=== PATIENT | male | born 1980 | race Caucasian/White ===

== ENCOUNTER 2023-09-12 08:23 | Emergency (ER) | payer MEDICAID ==
[~2023-09-12] VITALS: Ht 190.5 cm; Wt 88.7 kg
[2023-09-12 08:55] VITALS: TEMP 98.5
[2023-09-12] MEDS ORDERED: AMOX-117 PO (10:28)
[2023-09-12] MEDS ORDERED: ketorolac trometh inj. 60 MG/2 ML VIAL IM ONE (10:30)
[2023-09-12] MEDS ORDERED: ondansetron/PF 4mg/2ml inj IM ONE (10:30)
[2023-09-12] MEDS ORDERED: diphenhydrAMINE 50 mg/ml inj IM ONE (10:30)
--- NOTE | 2023-09-12 10:33 | NUR ---
[employer] GENERAL ASSESSMENT REVIEWED BY ROBBIE RN; APPROVED
[2023-09-12 10:46] VITALS: BP 136/86; PULSE 61; RESP 18; O2SAT 98
== END 2023-09-12 10:46 | disposition home or self-care (01) ==
LOC: ER 08:23
DX: G43.909 Migraine, unspecified, not intractable, without status migrainosus (principal); J01.80 Other acute sinusitis
CPT/HCPCS: 96372; 99284; J1200; J1885; J2405

== ENCOUNTER 2023-10-11 13:56 | Emergency (ER) | payer MEDICAID ==
[~2023-10-11] VITALS: Ht 190.5 cm; Wt 98.2 kg
[2023-10-11] MEDS ORDERED: proCHLORperazine 10 MG/2 ml inj IM ONE (14:40)
[2023-10-11] MEDS ORDERED: diphenhydrAMINE 50 mg/ml inj IM ONE (14:40)
[2023-10-11 16:28] VITALS: BP 107/59; PULSE 57; RESP 18; TEMP 98.1; O2SAT 97
== END 2023-10-11 16:40 | disposition home or self-care (01) ==
LOC: ER 13:57
DX: R51.9 Headache, unspecified (principal)
CPT/HCPCS: 70450; 96372; 99285; J0780; J1200